=== PATIENT | female | born 1965 | race Caucasian/White ===

== ENCOUNTER 2016-11-09 06:18 | Day surgery (SDC) | payer OTHER ==
[2016-11-08 13:21] VITALS: BMI 21.4
[2016-11-09] MEDS ORDERED: VASOPRESSIN 20 UNITS/ML VIAL IV ONE (07:44)
--- NOTE | 2016-11-09 08:17 | HP ---
Admitting History and Physical - Admission Chief Complaint: Pelvic prolapse History of Present Illness: 51 yo Para 3, with pelvic prolapse is Pre op for vaginal hysterectomy. History Source: Patient Limitations to Obtaining History: No Limitations - Past Medical History ...LMP Comment: 6 YRS AGO ...: No - Past Surgical History Past Surgical History: Yes: None - Smoking History Smoking history: Never smoked Have you smoked in the past 12 months: No - Alcohol/Substance Use Hx Alcohol Use: No - Social History History of Recent Travel: No Home Medications - Allergies Allergies/Adverse Reactions: Allergies Allergy/AdvReac Type Severity Reaction Status Date / Time No Known Drug Allergies Allergy Verified 11/09/16 07:05 - Home Medications Home Medications: Ambulatory Orders Omeprazole [Prilosec (RX)] 40 mg PO DAILY 06/27/15 Family Disease History - Family Disease History Family History: Unremarkable Review of Systems - Review of Systems Constitutional: reports: No Symptoms Eyes: reports: No Symptoms HENT: reports: No Symptoms Neck: reports: No Symptoms Cardiovascular: reports: No Symptoms Respiratory: reports: No Symptoms Gastrointestinal: reports: No Symptoms Genitourinary: reports: Other (Prolapse) Breasts: reports: No Symptoms Reported Musculoskeletal: reports: No Symptoms Neurological: reports: No Symptoms Endocrine: reports: No Symptoms Hematology/Lymphatic: reports: No Symptoms Psychiatric: reports: No Symptoms Pain Intensity: 3 Physical Examination Vital Signs: Vital Signs Temperature 98.1 F 11/09/16 07:00 Pulse Rate 80 11/09/16 07:00 Respiratory Rate 16 11/09/16 07:00 Blood Pressure 140/86 11/09/16 07:00 O2 Sat by Pulse Oximetry (%) 99 11/09/16 06:46 Constitutional: Yes: Well Nourished Eyes: Yes: Conjunctiva Clear HENT: Yes: Atraumatic Neck: Yes: Supple, Trachea Midline Cardiovascular: Yes: Regular Rate and Rhythm Respiratory: Yes: Regular Gastrointestinal: Yes: Normal Bowel Sounds ...Rectal Exam: Yes: WNL Neurological: Yes: Alert, Oriented ...Motor Strength: WNL Psychiatric: Yes: Alert, Oriented Problem List - Problems (1) Pelvic prolapse Code(s): N81.9 - FEMALE GENITAL PROLAPSE, UNSPECIFIED Qualifiers: Prolapse type: incomplete uterovaginal prolapse Qualified Code(s): N81.2 - Incomplete uterovaginal prolapse Assessment/Plan Pelvic prolapse Pre op for vaginal hysterectomy Consent signed Anesthesia to see patient
--- NOTE | 2016-11-09 08:18 | OP ---
Operative Note - Note: Operative Date: 11/09/16 Pre-Operative Diagnosis: Pelvic prolapse Operation: Vaginal Hysterectomy Findings: Grade 2 uterovaginal prolapse Grade 3 Cystocele Post-Operative Diagnosis: Same as Pre-op Surgeon: Belem Agarwal Herb Counselor: Angelica Ching Anesthesia: Spinal Specimens Removed: Uterus / Cervix Estimated Blood Loss (mls): 50
[2016-11-09] MEDS ORDERED: ceFAZolin SODIUM 1 GM VIAL ONE ×2 (08:22→16:21)
[2016-11-09] MEDS ORDERED: ceFAZolin SODIUM 1 GM VIAL IVPB ONE (08:26)
[2016-11-09] MEDS ORDERED: DEXAMETHASONE SOD PHOSPHATE 4 MG/1 ML VIAL ONE (08:45)
[2016-11-09] MEDS ORDERED: IBUPROFEN 800 MG/8 ML IJ IVPB ONE (08:58)
[2016-11-09] MEDS ORDERED: metroNIDAZOLE 0.75% VAGINAL GEL 70 GM TUBE ONE (09:32)
[2016-11-09] MEDS ORDERED: ACETAMINOPHEN 325 MG TABLET (FP) PO PRN (09:42)
[2016-11-09] MEDS ORDERED: oxyCODONE HCL 5 MG TABLET PO PRN (10:41)
[2016-11-09] MEDS ORDERED: CEFAZOLIN 1 GM in DEXTROSE 5%-WATER - 50 ML IVPB SCH (16:15)
[2016-11-09] MEDS ORDERED: DEXTROSE 5%-WATER - 50 ML IVPB ONE (16:22)
[2016-11-09] MEDS ORDERED: CEFAZOLIN (PRE-DOCKED) 50 ML IVPB SCH (16:30)
[2016-11-09] MEDS: DEXTROSE 5%-LACTATED RINGERS 1,000 ML IV SCH ×2 (20:01→20:58)
[2016-11-10] MEDS: DEXTROSE 5%-LACTATED RINGERS 1,000 ML IV SCH (04:15)
[2016-11-10 06:18] VITALS: BP 118/70; PULSE 68; TEMP 98.3
--- NOTE | 2016-11-10 07:50 | PN ---
Progress Note, Physician Chief Complaint: Pt seen/examined and doing well. States no pain. Tolerating full liquid diet. NO VB thought packing overnight, packing removed at bedside today. NO CP/SOB/F/ C/ARREAGA. Some flatus overnight. Has not been OOB yet today. - Current Medication List Current Medications: Active Medications Acetaminophen (Tylenol -) 325 mg PO Q4H PRN PRN Reason: PAIN LEVEL 1-5 Dextrose/Lactated Ringer's (D5-Lr -) 1,000 mls @ 125 mls/hr IV ASDIR HENRIK Last Admin: 11/10/16 04:15 Dose: 125 mls/hr Oxycodone HCl (Roxicodone -) 5 mg PO Q4H PRN PRN Reason: PAIN LEVEL 1-5 - Objective Vital Signs: Vital Signs Temperature 98.3 F 11/10/16 06:00 Pulse Rate 68 11/10/16 06:00 Respiratory Rate 20 11/10/16 06:00 Blood Pressure 118/70 11/10/16 06:00 O2 Sat by Pulse Oximetry (%) 98 11/09/16 21:00 Constitutional: Yes: Well Nourished, No Distress, Calm Eyes: Yes: Conjunctiva Clear, EOM Intact HENT: Yes: Atraumatic, Normocephalic Neck: Yes: Supple, Trachea Midline Cardiovascular: Yes: Regular Rate and Rhythm Gastrointestinal: Yes: Normal Bowel Sounds, Soft Wound/Incision: Yes: Clean/Dry, Well Approximated Psychiatric: Yes: Alert, Oriented Assessment/Plan 51 y/o POD#1 s/p TVH and anterior repair - AFVSS - dc correa - regular diet - possible dc today if tolerating diet and voiding
[2016-11-10] MEDS ORDERED: IBUPROFEN 600 MG TABLET (FP) PO PRN (07:59)
[2016-11-10 08:28] LABS: BASOPHIL 0.1 % (0-2.0); MCH 29.5 pg (25.7-33.7); MCHC 33.5 g/dl (32.0-36.0); NEUTROPHILS 79.6 % (42.8-82.8); PLATELET COUNT 241 K/MM3 (134-434); RDW 13.1 % (11.6-15.6); WHITE BLOOD COUNT 15.3 K/mm3 (4.0-10.0)
--- NOTE | 2016-11-10 09:26 | DS ---
Physical Examination Vital Signs: Vital Signs Temperature 98.3 F 11/10/16 06:00 Pulse Rate 68 11/10/16 06:00 Respiratory Rate 20 11/10/16 08:37 Blood Pressure 118/70 11/10/16 06:00 O2 Sat by Pulse Oximetry (%) 98 11/10/16 08:37 Constitutional: Yes: Well Nourished Eyes: Yes: Conjunctiva Clear Cardiovascular: Yes: Regular Rate and Rhythm Respiratory: Yes: Regular Gastrointestinal: Yes: Normal Bowel Sounds Breast(s): Yes: WNL Musculoskeletal: Yes: WNL Extremities: Yes: WNL Wound/Incision: Yes: Other (Vaginal packing removed, no bleeding) Neurological: Yes: Alert, Oriented ...Motor Strength: WNL Psychiatric: Yes: Alert, Oriented Labs: CBC, BMP 11/10/16 08:20 Discharge Summary Reason For Visit: Pelvic prolapse Current Active Problems Pelvic prolapse (Acute) S/P vaginal hysterectomy (Acute) Procedures: Principal: Vaginal Hysterectomy Other Procedures: Anterior repair Hospital Course: Patient received additional dosage of antibiotic post op. No blood transfusion required. Condition: Good - Instructions Diet, Activity, Other Instructions: Physical activity Resume your normal everyday activity as tolerated but no heavy lifting or exercise until seen by your surgeon. You may walk unlimited [place] of and climb stairs. You may resume driving the car when you feel safe and comfortable behind the wheel. No sexual activity as instructed by Dr. Agarwal. You may shower, no soaking in tubs/baths/pools until cleared by your doctor. Diet There are no dietary restrictions. Eat healthy, high-fiber foods. Drink 6 to 8 glasses of liquid each day. This will assist in keeping your bowels regular. Pain management You may take Tylenol or Ibuprofen (for example, Motrin, Advil etc.) as needed for pain. If you need anything stronger, please call your doctor. Call Dr. Agarwal for any of the following: Severe pain not relieved by medication Fever of 101 or higher Excessive bleeding or drainage on dressing Inability to urinate Call the office at [phone] for an appointment in 14 days. Referrals: Belem Agarwal MD [Staff Physician] - 2 Weeks Disposition: HOME - Home Medications Comprehensive Discharge Medication List: Ambulatory Orders Omeprazole [Prilosec (RX)] 40 mg PO DAILY 06/27/15
--- NOTE | 2016-11-10 09:49 | PN ---
Progress Note (short form) - Note Progress Note: POD #1 - s/p vaginal hysterectomy under spinal anesthesia with duramorph. Pt. doing well, resting comfortably in bed. VSS. No complaints. Good pain control. No apparent anesthetic complications noted. Pt. to be discharged later today.
--- NOTE | 2016-11-12 13:17 | PATH ---
Surgical Pathology Report Patient Name: ANDRES BENDER [facility]. Rec. #: [id number] /Age/Gender: 1965 (Age: 51) / F Account: [id number] Location: AMBULATORY SURG Taken: 11/09/2016 Received: 11/09/2016 Reported: 11/12/2016 Physicians: Belem Agarwal M.D. Specimen(s) Received UTERUS AND CERVIX Clinical History Cervical dysplasia Final Diagnosis UTERUS, CERVIX, TOTAL VAGINAL HYSTERECTOMY: CERVIX: FOCAL LOW GRADE SQUAMOUS INTRAEPITHELIAL LESION (HPV RELATED KOILOCYTIC CHANGE); SMALL ENDOCERVICAL POLYP. ENDOMETRIUM: INACTIVE. MYOMETRIUM: ADENOMYOSIS. UTERINE SEROSA: SUBSEROSAL ADENOMYOSIS. Electronically Signed Haider Heck M.D. Gross Description Received in formalin labelled "uterus, cervix" is a 56 gram hysterectomy specimen composed of a uterus with attached cervix. The uterus measures 7.0 x 4.3 x of 23.5 cm. The cervix measures 3.5 x 2.2 cm with a central 0.3 cm os. The uterine serosa is mostly smooth and glistening, with multiple small subserosal nodules measuring up to 0.4 cm in greatest dimension. The vaginal cuff margin is inked. The endocervical canal is 1.6 cm long it is lined by key mucosa. The endometrial cavity measures 2.2 x 1.6 cm. The endometrium is up to 0.2 cm thick with a smooth key surface. The myometrium is up to 2.4 cm thick. Cut surface of the myometrium reveals no myometrial nodules. Cell Tuber Hand sections are submitted in 15 cassettes as follows: 1-parametrium, 2-8- entire ectocervix, 9 and 10-endocervix and lower uterine segment, 11 through 14-endomyometrium and serosa, 15-uterine serosal nodules. AMARILIS/11/09/2016 [facility]/11/09/2016
--- NOTE | 2016-11-15 09:43 | OP ---
DATE OF OPERATION: 11/09/2016 PREOPERATIVE DIAGNOSIS: Pelvic prolapse. POSTOPERATIVE DIAGNOSIS: Uterovaginal prolapse and cystocele. SURGEON: Belem Agarwal MD PUBLISHER ASSISTANT: Angelica Ching DO ANESTHESIA: General. COMPLICATIONS: None. ESTIMATED BLOOD LOSS: 50 mL. PATHOLOGY: Uterus and cervix. DESCRIPTION OF PROCEDURE: The patient was taken to the operating room where general anesthesia was administered. The patient was then placed in lithotomy position. She was then prepped and draped in appropriate sterile fashion. A weighted speculum was placed in the vagina, and the cervix was grasped with a two-tooth tenaculum. The cervix was then injected circumferentially with Pitocin then the cervix was then circumferentially incised using the Bovie cautery. The bladder was dissected off the pubovesicocervical fascia anteriorly with a sponge stick. The anterior cul-de-sac was entered sharply. The same procedure was performed posteriorly and the posterior cul-de-sac entered sharply without difficulty. At this point, a Julia clamp was placed over the uterosacral ligaments on either side. These were then transected and suture ligated using 0 Vicryl. Hemostasis was assured. The cardinal ligaments were then clamped on both sides, transected, and suture ligated in similar fashion. The uterine arteries and the broad ligament were then serially clamped with a Julia clamp, transected, and suture ligated on both sides. Excellent hemostasis was visualized. Both cornua were clamped with Julia clamp, transected, and suture ligated. The uterus was delivered. This pedicle was then suture ligated with excellent hemostasis. The vagina cuff angles were closed with [id number] stitches of 0 Vicryl on both sides and transected cardinal ligament and uterosacral ligaments. The remainder of the vaginal cuff was closed with [id number] stitches of 0 Vicryl in interrupted fashion. All instruments were then removed from the vagina, and the patient was taken out of dorsal lithotomy position and awakened from general anesthesia. Attention was then turned to the bladder where Pitocin was injected. An incision was made using the 11 blade then using Allis' the vagina wall was held with the Allis and the vagina wall was dissected off the bladder. A portion of the vagina was incised then the incision was imbricated to reduce the cystocele. The instruments were removed. The patient was taken out of lithotomy position. She was taken to PACU in stable condition. Louis [id number]
== END 2016-11-10 12:58 | disposition home or self-care (01) ==
LOC: JASUSAT 06:18 → J6S 12:17 → JASUSAT 11-10 12:58
PROVIDERS: ATTEND Obstetrics & Gynecology
PROC: 0UTC7ZZ Resection of Cervix, Via Natural or Artificial Opening (ICD-10-PCS; 2016-11-09)
PROC: 0JQC0ZZ Repair Pelvic Region Subcutaneous Tissue and Fascia, Open Approach (ICD-10-PCS; 2016-11-09)
PROC: 0UT97ZZ Resection of Uterus, Via Natural or Artificial Opening (ICD-10-PCS; principal; 2016-11-09 08:00)
DX: N81.4 Uterovaginal prolapse, unspecified (principal); R87.612 Low grade squamous intraepithelial lesion on cytologic smear of cervix (LGSIL); N80.0 Endometriosis of uterus
CPT/HCPCS: 36415; 85025; 86850; 86900; 86901; 88307-TC; 94760

== ENCOUNTER → 2023-02-20 | Day surgery (SDC) | payer OTHER | END | disposition home or self-care (01) | LOC: JRADUS-SUR 08:36 | PROVIDERS: ATTEND Family Medicine Geriatric Medicine | PROC: 0H9U3ZX Drainage of Left Breast, Percutaneous Approach, Diagnostic (ICD-10-PCS; principal; 2023-02-20) | DX: D24.2 Benign neoplasm of left breast (principal) | CPT/HCPCS: 19083; 77065-TC; 87899; A4648 ==

== ENCOUNTER 2023-05-20 04:35 | Day surgery (SDC) | payer OTHER ==
[2023-05-17 15:09] VITALS: BMI 20.6
[2023-05-20 08:47] VITALS: PULSE 71
[2023-05-20 08:56] VITALS: BP 101/52; RESP 16; TEMP 97.3
== END 2023-05-20 09:37 | disposition home or self-care (01) ==
LOC: JASU-ENDO 04:35
PROVIDERS: ATTEND Internal Medicine Gastroenterology
PROC: 0DB78ZX Excision of Stomach, Pylorus, Via Natural or Artificial Opening Endoscopic, Diagnostic (ICD-10-PCS; 2023-05-20)
PROC: 0DB68ZX Excision of Stomach, Via Natural or Artificial Opening Endoscopic, Diagnostic (ICD-10-PCS; 2023-05-20)
PROC: 0DB98ZX Excision of Duodenum, Via Natural or Artificial Opening Endoscopic, Diagnostic (ICD-10-PCS; principal; 2023-05-20 08:00)
DX: K29.50 Unspecified chronic gastritis without bleeding (principal)
CPT/HCPCS: 88305-TC; 88342-TC

== ENCOUNTER 2023-08-06 04:42 | Day surgery (SDC) | payer OTHER ==
[2023-08-05 11:06] VITALS: BMI 28.9
[2023-08-06 08:26] VITALS: RESP 18; TEMP 97.9
[2023-08-06 08:56] VITALS: BP 116/66; PULSE 81
== END 2023-08-06 09:41 | disposition home or self-care (01) ==
LOC: JASU-ENDO 04:42
PROVIDERS: ATTEND Internal Medicine Gastroenterology
PROC: 0DJD8ZZ Inspection of Lower Intestinal Tract, Via Natural or Artificial Opening Endoscopic (ICD-10-PCS; principal; 2023-08-06 08:00)
DX: K57.30 Diverticulosis of large intestine without perforation or abscess without bleeding (principal); K64.8 Other hemorrhoids

== ENCOUNTER → 2023-09-16 | Day surgery (SDC) | payer OTHER | END | disposition home or self-care (01) | LOC: JRADIR 09:26 | PROVIDERS: ATTEND Internal Medicine Endocrinology, Diabetes & Metabolism | PROC: 0GBH3ZX Excision of Right Thyroid Gland Lobe, Percutaneous Approach, Diagnostic (ICD-10-PCS; principal; 2023-09-16) | DX: E04.1 Nontoxic single thyroid nodule (principal) | CPT/HCPCS: 10005; 76942; 88173; 88305-TC ==

== ENCOUNTER 2024-12-08 06:07 | Inpatient (IN) | payer OTHER ==
[2024-12-04 13:51] VITALS: BMI 22.4
[2024-12-08] MEDS ORDERED: ACETAMINOPHEN 500 MG TABLET (FP) ONE (06:48)
[2024-12-08] MEDS ORDERED: GABAPENTIN 300 MG CAPSULE ONE (06:48)
[2024-12-08] MEDS: GABAPENTIN 300 MG CAPSULE PO ONE (06:50)
[2024-12-08] MEDS: ACETAMINOPHEN 500 MG TABLET (FP) PO ONE (06:51)
[2024-12-08] MEDS ORDERED: GENTAMICIN SO4 80 MG/2 ML VIAL ONE (07:17)
[2024-12-08] MEDS ORDERED: THROMBIN (BOVINE) 20,000 UNIT VIAL TP ONE (07:17)
[2024-12-08] MEDS ORDERED: BUPIVACAINE HCL/PF 0.5% (5MG/ML) 10 ML VIAL ONE (07:18)
[2024-12-08] MEDS ORDERED: LIDOCAINE 1%/EPI 1:100000 (20 ML MULTI DOSE VIAL) ONE (07:18)
[2024-12-08] MEDS ORDERED: MIDAZOLAM HCL 2 MG/2 ML SINGLE DOSE VIAL ONE (07:58)
[2024-12-08] MEDS ORDERED: PROPOFOL 20 ML ONE (07:58)
[2024-12-08] MEDS ORDERED: ROCURONIUM BROMIDE 50 MG/5 ML SYRINGE ONE (07:58)
[2024-12-08] MEDS ORDERED: ACETAMINOPHEN INJECTION 100 ML ONE (08:09)
[2024-12-08] MEDS: VANCOMYCIN 1,000 MG VIAL (RESTRICTED TO ID ONLY) IVPB ONE (08:27)
[2024-12-08] MEDS: THROMBIN (BOVINE) 5,000 UNIT VIAL TP ONE (09:01)
[2024-12-08] MEDS: GELATIN, ABSORBABLE 100 EACH SPONGE TP ONE (09:03)
[2024-12-08] MEDS ORDERED: DEXAMETHASONE SOD PHOSPHATE 4 MG/1 ML VIAL ONE (09:09)
[2024-12-08] MEDS ORDERED: TRANEXAMIC ACID 1000 MG/10 ML VIAL ONE (09:09)
[2024-12-08] MEDS ORDERED: ONDANSETRON 4 MG/2 ML VIAL ONE (09:09)
[2024-12-08] MEDS ORDERED: VANCOMYCIN 1,000 MG VIAL (RESTRICTED TO ID ONLY) ONE (09:09)
[2024-12-08] MEDS ORDERED: ONDANSETRON 4 MG/2 ML VIAL IVPUSH PRN ×2 (10:11→10:13)
[2024-12-08] MEDS ORDERED: morphine CARPU-JECT 2 MG/1 ML DISP.SYRIN IVPUSH PRN (10:13)
[2024-12-08] MEDS ORDERED: diphenhydrAMINE HCL 25 MG CAPSULE (FP) PO PRN (10:13)
[2024-12-08] MEDS: LACTATED RINGERS SOLUTION 1,000 ML/1,000 ML INFUS.BAG IV SCH (13:30)
[2024-12-08] MEDS: CEFAZOLIN 1 GM in DEXTROSE 5%-WATER - 50 ML IVPB SCH (17:21)
[2024-12-08] MEDS: ACETAMINOPHEN 1000 MG/100 ML BAG IVPB SCH (18:40)
[2024-12-08] MEDS: LACTATED RINGERS SOLUTION 1,000 ML IV SCH (21:01)
[2024-12-08] MEDS: DOCUSATE SODIUM 100 MG CAPSULE (FP) PO SCH (21:21)
[2024-12-08] MEDS: FAMOTIDINE 20 MG/50 ML IVPB 20 MG/50 ML MG IVPB ONE (21:21)
[2024-12-08] MEDS: HEPARIN NA (PORCINE) 5,000 UNITS/ML 1ML VIAL SQ SCH (21:21)
[2024-12-08 21:38] VITALS: RESP 18
[2024-12-09 08:11] LABS: MCHC 32.1 g/dl (32.2-35.5); MEAN CELL VOLUME 91.7 fl (79.4-94.8); MEAN PLT VOLUME 10.0 fl (9.4-12.3); RDW 13.3 % (12.3-16.6)
[2024-12-09 08:21] LABS: GLUCOSE,RANDOM 117.0 mg/dL (74-106)
[2024-12-09 08:22] LABS: CO2 26.0 mmol/L (21-32)
[2024-12-09 08:27] LABS: CREATININE 0.72 mg/dL (0.55-1.3)
[2024-12-09] MEDS: PROPYLTHIOURACIL 50 MG TABLET (UD) PO SCH (10:20)
[2024-12-09] MEDS: ROSUVASTATIN CA 20 MG TABLET PO SCH (10:20)
[2024-12-09] MEDS: ACETAMINOPHEN 500 MG TABLET (FP) PO SCH (14:53)
[2024-12-10] MEDS: POLYETHYLENE GLYCOL (HEALTHYLAX) 3350 17 GM PACKET PO SCH (10:21)
[2024-12-10 14:41] VITALS: BP 123/69; PULSE 89; TEMP 98.1
== END 2024-12-10 17:33 | disposition home health service (06) | DRG 321 ==
LOC: J2C 06:07 → J8W 13:41
PROVIDERS: ADMIT Family Medicine; ATTEND Family Medicine
PROC: 01N10ZZ Release Cervical Nerve, Open Approach (ICD-10-PCS; 2024-12-08)
PROC: 0RG20A0 Fusion of 2 or more Cervical Vertebral Joints with Interbody Fusion Device, Anterior Approach, Anterior Column, Open Approach (ICD-10-PCS; 2024-12-08)
PROC: 4A1004G Monitoring of Central Nervous Electrical Activity, Intraoperative, Open Approach (ICD-10-PCS; 2024-12-08)
PROC: 0PB30ZZ Excision of Cervical Vertebra, Open Approach (ICD-10-PCS; principal; 2024-12-08 08:00)
DX: M47.812 Spondylosis without myelopathy or radiculopathy, cervical region (principal); E05.90 Thyrotoxicosis, unspecified without thyrotoxic crisis or storm; E78.5 Hyperlipidemia, unspecified; K59.00 Constipation, unspecified; M40.202 Unspecified kyphosis, cervical region
CPT/HCPCS: 36415; 72125-TC; 76000-TC-FY; 80048; 85027; 86850; 86900; 86901; 94010; 94760; 97116-GP; C1713

== ENCOUNTER 2024-12-14 00:56 | Emergency (ER) | payer OTHER ==
[2024-12-14 01:08] VITALS: RESP 18; BMI 22.4
[2024-12-14 01:50] VITALS: BP 116/69; PULSE 81; TEMP 98.4
== END 2024-12-14 04:20 | disposition home or self-care (01) ==
LOC: JER 00:56
DX: M54.2 Cervicalgia (principal)
CPT/HCPCS: 99283-25